=== PATIENT | female | born 1945 | race Caucasian/White ===

== ENCOUNTER 2017-06-17 23:27 | Emergency (ER) | payer MEDICARE ==
[~2017-06-17] VITALS: Ht 167.6 cm; Wt 74.8 kg
--- NOTE | 2017-06-17 23:27 | NUR ---
TO BED 3 AMBULATORY C/O NOSEBLEED SINCE 2299. NO ACTIVE BLEEDING NOTED AT THIS TIME. BILATERAL NOSTRIL PACKED WITH COTTON NOTED. PT AAOX4 NO ACUTE DISTRESS NOTED, RESP EVEN AND UNLABORED. PENDING ER MD DEL CID.
--- NOTE | 2017-06-17 23:57 | NUR ---
GLORY WINTER AT BEDSIDE TO MARIA EUGENIA CONTRERAS.
--- NOTE | 2017-06-18 00:01 | NUR ---
MINIMAL BLEEDING NOTED ONCE ER MD PULLED OUT PACKING. NOSE CLAMPED APPLIED.
[2017-06-18] MEDS ORDERED: OXYMETAZOLINE HCL NASAL SPRAY 30 ML BOTTLE NS ONE ×2 (00:06→01:00)
[2017-06-18] MEDS ORDERED: CLONIDINE HCL 0.1 MG TABLET PO ONE (01:00)
[2017-06-18] MEDS ORDERED: CLONIDINE HCL 0.1 MG TABLET ONE (01:07)
[2017-06-18 01:46] VITALS: BP 177/72
== END 2017-06-18 01:47 | disposition home or self-care (01) ==
LOC: ER 23:29
DX: R04.0 Epistaxis (principal); I10 Essential (primary) hypertension; E11.9 Type 2 diabetes mellitus without complications; J45.909 Unspecified asthma, uncomplicated; K58.9 Irritable bowel syndrome, unspecified; M19.90 Unspecified osteoarthritis, unspecified site
CPT/HCPCS: 99283; A4606